=== PATIENT | male | born 1990 | race Caucasian/White ===

== ENCOUNTER 2016-08-04 18:57 | Emergency (ER) | payer MEDICAID ==
[2016-08-04 19:30] LABS: % IMMATURE GRANULYOCYTES 0.2 % (0.0-1.1); ABSOLUTE IMMATURE GRANULOCYTES 0.02 10^3/uL (0.00-0.10); ADD DIFF? NO; ADD MORPH? NO; ADD SCAN? NO; ATYPICAL LYMPHOCYTE FLAG 0 (0-99); FRAGMENT RBC FLAG 0 (0-99); HEMATOCRIT 43.6 % (40.0-51.0); HEMOGLOBIN 14.7 g/dL (13.7-17.5); LEFT SHIFT FLG 0 (0-99); LIPEMIA HEMOLYSIS FLAG 80 (0-99); MEAN CELL HEMOGLOBIN 30.9 pg (27.9-34.1); MEAN CELL HEMOGLOBIN CONCENTR. 33.7 g/dL (32.4-36.7); MEAN CELL VOLUME 91.8 fL (81.5-99.8); MEAN PLATELET VOLUME 9.2 fL (8.7-11.7); PLATELET CLUMPS FLAG 20 (0-99); PLATELET COUNT 244 10^3/uL (150-400); RED BLOOD CELL COUNT 4.75 10^6/uL (4.40-6.38); RED CELL DISTRIBUTION WIDTH 13.1 % (11.5-15.2)
[2016-08-04 19:45] LABS: ANION GAP 13 mEq/L (8-16); CALCIUM 9.6 mg/dL (8.5-10.4); CARBON DIOXIDE 25 mEq/l (22-31); CHLORIDE 101 mEq/L (97-110); CREATININE 0.9 mg/dL (0.7-1.3); ETHANOL SERUM < 10 mg/dL (0-10); GLOMERULAR FILTRATION RATE > 60; GLUCOSE 89 mg/dL (70-100); POTASSIUM 3.6 mEq/L (3.5-5.2); SODIUM 139 mEq/L (134-144)
[2016-08-04] MEDS ORDERED: TDAP ADULT 0.5 ML INJ (BOOSTRIX) IM ONE (19:48)
--- NOTE | 2016-08-04 20:04 | EDPHY ---
H & P Stated Complaint: SI with superficial lacerations x2 to left wrist - Personal History Current Tetanus/Diphtheria Vaccine: Yes Current Tetanus Diphtheria and Acellular Pertussis (TDAP): Yes Tetanus Vaccine Date: <10 YRS - Medical/Surgical History Hx Asthma: No Hx Chronic Respiratory Disease: No Hx Diabetes: No Hx Cardiac Disease: No Hx Renal Disease: No Hx Cirrhosis: No Hx Alcoholism: Yes Hx HIV/AIDS: No Hx Splenectomy or Spleen Trauma: No Other PMH: alcoholism, prior psych issues ( pt unable to explain more), oral gum surgery - Social History Smoking Status: Current every day smoker HPI/ROS: Chief complaint: Depression, suicidal ideation History of present illness: This is a 26-year-old male who presents to the emergency department reporting increasing depression lately. He states he is now having thoughts of killing himself. He did cut his left wrist with a knife tonight. He denies other specific plans. He denies homicidal ideation. He denies illness or other injury. He is unsure of his last tetanus shot. Review of systems: A 10 point review of systems was obtained and other than described above was negative (Alejandro Ibrahim) - Physical Exam Exam: General Appearance: Alert, nontoxic. Eyes: Pupils equal and round no pallor or injection. ENT, Mouth: Mucous membranes moist. Respiratory: There are no retractions, lungs are clear to auscultation. Cardiovascular: Regular rate and rhythm. Gastrointestinal: Abdomen is soft and nontender, no masses, bowel sounds normal. Neurological: Alert. Strength and sensation intact and symmetrical. Skin: Warm and dry, no rashes. Superficial abrasions to the left wrist where he cut himself, no repairable lesions. Musculoskeletal: Neck is supple nontender. Extremities are symmetrical, full range of motion. Psychiatric: Patient is oriented X 3, there is no agitation. (Alejandro Ibrahim) Constitutional: Initial Vital Signs Temperature (C) 36.9 C 08/04/16 19:09 Heart Rate 66 08/04/16 19:09 Respiratory Rate 14 08/04/16 19:09 Blood Pressure 127/78 H 08/04/16 19:09 O2 Sat (%) 98 08/04/16 19:09 O2 Delivery Mode Room Air Allergies/Adverse Reactions: Penicillins Allergy (Unknown, Verified 03/26/13 09:27) Sulfa (Sulfonamide Antibiotics) [Sulfa(Sulfonamide Antibiotics)] Allergy ( Unknown, Verified 03/26/13 09:27) Home Medications: Medication Instructions Recorded Paliperidone Palmitate [Invega 234 mg IM ONCE #1 syr 05/02/15 Sustenna (*)] Paliperidone [Invega 9mg ER (*)] 9 mg PO DAILY #30 tab.er 05/02/15 Medical Decision Making ED Course/Re-evaluation: Patient seen under the supervision of my secondary supervising physician Dr. Michele Harley. Patient presents to the emergency department with depression and suicidal ideation. He is medically evaluated and cleared for psychiatric evaluation. Patient is medically cleared, seen by psychiatric team and placed on an M1 hold. Inpatient treatment is currently being sought. Care of patient is turned over to my attending physician Dr. Shilpa Pena at end of shift. (Alejandro Ibrahim) 6:00 a.m. on August 05- The patient has been stable throughout my shift. He has been accepted for psychiatric placement at [facility] by . I have filled out the EMTALA form. (Shilpa Pena) Differential Diagnosis: Included but not limited to depression, bipolar, schizophrenia, substance abuse (Alejandro Ibrahim) Other Provider: I signed an M1 hold for the patient who is schizoaffective and depressed. Mental health is currently looking for placement. He is medically cleared. ( Michele Harley) - Data Points Laboratory Results: Laboratory Results 08/04/16 19:23 08/04/16 19:23 08/04/16 19:23 TSH 1.350 uIU/mL uIU/mL (0.465-4.680) Medications Given: Discontinued Medications Diphtheria/Tetanus/Acell Pertussis (Boostrix) 0.5 ml IM .ONCE ONE Stop: 08/04/16 19:49 Last Admin: 08/04/16 20:14 Dose: 0.5 ml Departure - Departure Disposition: Other Psych, Not [facility] Clinical Impression: Suicidal ideation Condition: Good Referrals: NONE *PRIMARY CARE P,. [Primary Care Provider] - As per Instructions
[2016-08-04 23:19] VITALS: RESP 16
[2016-08-05 06:28] VITALS: BP 102/66; PULSE 60; TEMP 98.6; O2SAT 97
== END 2016-08-05 06:37 ==
DX: R45.851 Suicidal ideations (principal); F17.200 Nicotine dependence, unspecified, uncomplicated; Z23 Encounter for immunization
CPT/HCPCS: 80305; G0480

== ENCOUNTER 2018-04-18 17:35 | Emergency (ER) | payer MEDICAID ==
--- NOTE | 2018-04-18 18:12 | EDPHY ---
H & P Smoking Status: Current every day smoker Time Seen by Provider: 04/18/18 18:11 HPI/ROS: CHIEF COMPLAINT: "I want to kill myself and kill my father" HISTORY OF PRESENT ILLNESS: 28-year-old homeless male history of schizoaffective disorder, polysubstance abuse, arrives via private vehicle voluntarily with his father. Both patient father provide information. Father informs me, voluntarily, the patient has been by enlarged living on the streets and with different individuals, recently has been staying at his house and went on a a cocaine and polysubstance "resendiz "yesterday and this afternoon became angry, agitated, endorsed suicidal ideation and homicidal ideation toward his father. Father offered to either take the patient to [facility] or bring him to the ER. Patient elected the ER. Patient denies: Hallucination, chest pain, dyspnea, headache, gait instability , trauma REVIEW OF SYSTEMS: 10 systems reviewed and negative with the exception of the elements mentioned in the history of present illness PAST MEDICAL & SURGICAL HISTORY: schizoaffective disorder. SOCIAL HISTORY: Polysubstance abuse. PHYSICAL EXAM (Prior to examination, patient consented to physical exam, hands were washed and my usual and customary physical exam procedures followed) 1) GENERAL: [poorly kept, dirty, changing facial expression appears intermittently suspicious and sad. His physical activity is under active. 2) HEAD: Normocephalic, atraumatic 3) HEENT: Pupils equal, round, reactive to light bilaterally. Sclera anicteric. 4) NECK: Full range of motion, no meningeal signs. 5) LUNGS: Clear auscultation bilaterally, no wheezes, no rhonchi, no retractions. 6) HEART: Regular rate and rhythm, no murmur, no heave, no gallop. 7) ABDOMEN: No guarding, no rebound, no focal tenderness, negative McBurney's, negative Echols's, negative Rovsing's, negative peritoneal sign, 8) MUSCULOSKELETAL: Moving all extremities, no focal areas of tenderness, no obvious trauma. No peripheral edema or discoloration. 9) BACK: No CVA tenderness, no midline vertebral tenderness, no fluctuance, no step-off, no obvious trauma, no visual or palpable abnormality. 10) SKIN: No rash, no petechiae. 11) Psychiatric: Patient is oriented X 3, his talk is logica, intermittently over talkative and controlled DIFFERENTIAL DIAGNOSIS: In no particular order including but not limited to depression, suicidal ideation, homicidal ideation (Jackelin,Alistair Negra) Constitutional: Initial Vital Signs Temperature (C) 36.7 C 04/18/18 17:39 Heart Rate 104 H 04/18/18 17:39 Respiratory Rate 18 04/18/18 17:39 Blood Pressure 149/97 H 04/18/18 17:39 O2 Sat (%) 93 04/18/18 17:39 O2 Delivery Mode Room Air Allergies/Adverse Reactions: Penicillins Allergy (Unknown, Verified 04/18/18 17:38) Sulfa (Sulfonamide Antibiotics) [Sulfa(Sulfonamide Antibiotics)] Allergy ( Unknown, Verified 04/18/18 17:38) Home Medications: Medication Instructions Recorded Bupropion HCl [Wellbutrin Xl] 300 mg PO DAILY 04/19/18 Paliperidone Palmitate [Invega 234 mg IM ONCE 04/19/18 Sustenna (*)] Paliperidone [Invega 9mg ER (*)] 9 mg PO DAILY8 PRN 04/19/18 Propranolol HCl [Inderal 20mg (*)] 20 mg PO DAILY PRN 04/19/18 busPIRone [Buspar (*)] 15 mg PO QID 04/19/18 MDM/Departure - MDM Medications Given: Bupropion HCl (Wellbutrin Xl) 300 mg PO DAILY [facility] Stop: 10/16/18 10:29 Last Admin: 04/19/18 10:50 Dose: 300 mg Buspirone HCl (Buspar) 15 mg PO QID [facility] Stop: 10/16/18 11:59 Last Admin: 04/19/18 10:58 Dose: 15 mg Paliperidone (Invega) 9 mg PO DAILY K[facility] Stop: 10/16/18 10:29 Last Admin: 04/19/18 10:56 Dose: 9 mg Discontinued Medications Lorazepam (Ativan) 0.5 mg PO EDNOW ONE Stop: 04/19/18 10:44 Last Admin: 04/19/18 10:58 Dose: 0.5 mg Nicotine (Nicoderm Cq) 21 mg TD ONCE ONE Stop: 04/19/18 09:18 Last Admin: 04/19/18 09:27 Dose: 21 mg Ondansetron HCl (Zofran Odt) 4 mg PO EDNOW ONE Stop: 04/19/18 06:17 Last Admin: 04/19/18 06:10 Dose: 4 mg Ondansetron HCl (Zofran Odt) 4 mg PO EDNOW ONE Stop: 04/19/18 09:24 Last Admin: 04/19/18 09:28 Dose: 4 mg ED Course/Re-evaluation: PHYSICIAN DOCUMENTATION: The patient was evaluated and managed by the Physician Environmental Health Officer and myself. I have reviewed the chart and agree with the findings and plan of care as documented. In addition, I examined the patient myself at 1835. History confirmed as schizoaffective disorder. Physical findings as follows: Patient voices suicidal and homicidal ideation. Placed on a mental health hold for danger to self and others, states wants to kill his father, father in room and aware. Signed out to Dr. Coker with mental health evaluation pending. I am the secondary supervising physician. (Jose Rafael Roach) 6:25 p.m.: Patient's history of schizoaffective disorder, endorses suicidal ideation without plan on homicidal ideation toward his father. I spoke with his father who voluntarily provided me information at 6:20 p.m. And is aware that the patient has expressed homicidal ideation toward him. I think the patient meets criteria for an M1 hold. Case discussed with secondary supervising physician Dr. Jose Rafael Roach and patient has been placed on M1 hold. ( Alistair Benítez) 7:00 a.m.-I assumed care of this patient at shift change. He is awaiting inpatient mental health disposition for suicidal ideation. 1145: [facility] requested EKG. EKG interpreted by me reveals sinus tachycardia, rate 102, ST segment elevation consistent with early repolarization pattern, no ST or T segment changes. Interpretation: o/w Normal EKG This patient has been accepted to [facility]. EMTALA form completed. ( Marsha Mattson) - Depart Disposition: Other Psych, Not [place] Clinical Impression: Suicidal ideation, Homicidal ideation Schizoaffective disorder Qualifiers: Schizoaffective disorder type: unspecified Qualified Code(s): F25.9 - Schizoaffective disorder, unspecified Condition: Good Instructions: Schizoaffective Disorder (ED) Referrals: NONE *PRIMARY CARE P,. [Primary Care Provider] - As per Instructions
[2018-04-18 19:01] LABS: PLATELET COUNT 306 10^3/uL (150-400)
[2018-04-19] MEDS ORDERED: ONDANSETRON DISINTEGRATING 4 MG TAB ONE (06:10)
[2018-04-19] MEDS ORDERED: ONDANSETRON DISINTEGRATING 4 MG TAB PO ONE ×2 (06:16→09:23)
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
[2018-04-19] MEDS ORDERED: NICOTINE 21 MG/24 HR PATCH TD ONE (09:17)
[2018-04-19] MEDS ORDERED: PALIPERIDONE 9 MG TAB.ER PO SCH (10:30)
[2018-04-19] MEDS ORDERED: buPROPion XL 150 MG TAB PO SCH (10:30)
[2018-04-19] MEDS ORDERED: LORazepam 0.5 MG TAB PO ONE (10:43)
[2018-04-19] MEDS ORDERED: NICOTINE 14 MG/24 HR PATCH TD ONE (11:34)
[2018-04-19] MEDS ORDERED: busPIRone 15 MG TAB PO SCH (12:00)
--- NOTE | 2018-04-19 14:21 | ASMTTCLDSP ---
TLC Discharge Disposition Disposition: Answers: Transfer Discharge Concerns/Recommendations: Notes: In consultation with [facility] ED physician, aMrsha Mattson MD anconcurred that pt appears to meet 27-65 criteria requiring psychiatric hospitalization as pt appears to be at risk of harm to self/others due to a mental illness condition. Was patient given the Answers: Not applicable Inpatient Behavioral Health Prohibited Belongings List while in the ED? For Transfers, Accepting [facility] Facility: For Transfers, Accepting Dr. Tracey Palacios Psychiatrist: For Transfers, Reason Dual dx Patient is Being Transferred: Date Signed: 04/19/2018 02:20 PM Electronically Signed By:Catia Staley
--- NOTE | 2018-04-19 14:35 | CPEKG ---
Test Reason : OPEN Blood Pressure : / mmHG Vent. Rate : 102 BPM Atrial Rate : 102 BPM P-R Int : 134 ms QRS Dur : 100 ms QT Int : 336 ms P-R-T Axes : 051 040 045 degrees QTc Int : [address] elev, probable normal early repol pattern Confirmed by Marsha Mattson ([id number]) on 04/19/2018 2:35:24 PM Referred By: Confirmed By:Marsha Mattson
[2018-04-19 17:08] VITALS: BP 138/90
== END 2018-04-19 17:06 ==
DX: R45.851 Suicidal ideations (principal); F20.0 Paranoid schizophrenia; Z59.0 Homelessness; F17.200 Nicotine dependence, unspecified, uncomplicated
CPT/HCPCS: 80305; G0480